=== PATIENT | male | born 1960 | race American Indian/Alaskan Native ===

== ENCOUNTER 2021-10-22 06:57 | Observation (INO) | payer OTHER ==
[2021-10-17 09:38] LABS: Hematocrit 46.8 % (35.5-45.6); Hemoglobin 14.9 gm/dl (11.8-15.2); Mean Corpuscular HGB Conc 32 % (32-34); Mean Corpuscular Volume 88 fl (84-94); Platelet Count 204 K/mm3 (140-440); Red Cell Distribution Width 14.4 % (13.2-15.2)
[2021-10-17 09:54] LABS: Alanine Aminotransferase 23 units/L (7-56); Albumin 4.1 g/dL (3.9-5); BUN/Creatinine Ratio 15; Blood Urea Nitrogen 15 mg/dL (9-20); Calcium 8.9 mg/dL (8.4-10.2); Hemolysis Index 4
[~2021-10-22 06:57] MED LIST: ACETAMINOPHEN 500 MG TAB PO SCH; GABAPENTIN 300 MG CAP PO NR; LACTATED RINGERS 1,000 ML IV SCH; MIDAZOLAM 2 MG/2 ML INJ IV NR
[2021-10-22] MEDS ORDERED: HYDROmorphone 1 MG/1 ML INJ IV PRN (08:26)
[2021-10-22] MEDS ORDERED: oxyCODONE /ACETAMINOPHEN 5-325MG TAB PO PRN (08:26)
--- NOTE | 2021-10-22 08:26 | Anesthesia Day of Surgery ---
Anesthesia Day of Surgery - Day of Surgery Patient Examined: Yes Patient H&P Reviewed: Yes Patient is NPO: Yes
--- NOTE | 2021-10-22 08:26 | Anesthesia Consultation ---
Anesthesia Consult and Med Hx Date of service: 10/22/21 - Airway Anesthetic Teeth Evaluation: Good, Dentures (upper) ROM Head & Neck: Adequate Mental/Hyoid Distance: Adequate Mallampati Class: Class III Intubation Access Assessment: Possibly Difficult - Pre-Operative Health Status ASA Pre-Surgery Classification: ASA3 Proposed Anesthetic Plan: General - Pulmonary Hx Smoking: No (quit 2yrs ago) Hx Respiratory Symptoms: No - Cardiovascular System Hx Hypertension: Yes (took amlodipine this morning) Hx Heart Attack/AMI: No Hx Percutaneous Transluminal Coronary Angioplasty (PTCA): No Hx Cardia Arrhythmia: No - Central Nervous System CVA: No - Endocrine Hx Renal Disease: No Hx Liver Disease: No Hx Insulin Dependent Diabetes: No Hx Non-Insulin Dependent Diabetes: No Hx Thyroid Disease: No - Other Systems Hx Cancer: Yes (hx prostate ca s/p prostatectomy) - Additional Comments Anesthesia Medical History Comments: No hx anesthetic complications.
[2021-10-22] MEDS ORDERED: GENTAMICIN/NS 80 MG/100 ML 100 ML IV ONE (08:42)
[2021-10-22] MEDS ORDERED: GENTAMICIN 80 MG in SODIUM CHLORIDE 0.9% 100 ML IV SCH (09:00)
[2021-10-22] MEDS ORDERED: VANCOMYCIN/NS 1 GM/250 ML 1 GM/250 ML BAG IV NR (09:00)
[2021-10-22] MEDS ORDERED: LIDOCAINE MPF (2%) 20 MG/1 ML VIAL 5 ML ONE (09:32)
[2021-10-22] MEDS ORDERED: propofoL 200 MG/20 ML VIAL IV ONE (09:32)
[2021-10-22] MEDS ORDERED: SODIUM CHLORIDE P/F VIAL 10 ML 10 ML ONE ×2 (09:36→10:13)
[2021-10-22] MEDS ORDERED: BUPIVACAINE/PF (0.5%) 5 MG/1 ML 30 ML VIAL INFILTRATI ONE ×2 (09:36→10:46)
[2021-10-22] MEDS ORDERED: GENTAMICIN 40 MG/ML VIAL 2 ML ONE (09:37)
[2021-10-22] MEDS ORDERED: SODIUM CHLORIDE 0.9% 500 ML 500 ML ONE (09:37)
[2021-10-22] MEDS ORDERED: fentaNYL 100 MCG/2 ML INJ ONE (09:37)
[2021-10-22] MEDS ORDERED: rifAMPin 600 MG VIAL ONE (09:37)
[2021-10-22] MEDS ORDERED: NEOMY 40 MG/POLYMYXIN B 200,000 UNITS/ML (GU) AMPULE IR ONE ×2 (09:37→10:48)
[2021-10-22] MEDS ORDERED: dexAMETHasone 20 MG/5 ML VIAL ONE (10:12)
[2021-10-22] MEDS ORDERED: ONDANSETRON 4 MG/2 ML INJ ONE (10:12)
[2021-10-22] MEDS ORDERED: ePHEDrine SULFATE 50 MG/1 ML INJ ONE (10:13)
[2021-10-22] MEDS ORDERED: SODIUM CHLORIDE 0.9% 500 ML IVPB IV ONE (10:47)
[2021-10-22] MEDS ORDERED: GENTAMICIN 40 MG/ML VIAL 2 ML IV ONE (10:47)
[2021-10-22] MEDS ORDERED: rifAMPin 600 MG VIAL IV ONE (10:48)
[2021-10-22] MEDS ORDERED: WATER FOR IRRIG STERILE 1,500 ML BOTTLE IR ONE (10:50)
[2021-10-22] MEDS ORDERED: SODIUM CHLORIDE 0.9% IRR 1,500 ML BOTTLE IR ONE (10:50)
[2021-10-22] MEDS ORDERED: SODIUM CHLORIDE 0.9% P/F 10 ML VIAL INFILTRATI ONE (10:50)
--- NOTE | 2021-10-22 11:57 | Short Stay Summary ---
Short Stay Documentation Date of service: 10/22/21 - History H&P: obtained from office - Allergies and Medications Current Medications: Allergies No Known Allergies Allergy (Verified 10/15/21 16:02) Home Medications Medication Instructions Recorded Confirmed Last Taken Type Multivit-Min/FA/Lycopen/Lutein 1 each PO DAILY 10/15/21 10/22/21 10/21/21 History [Centrum Silver Men Tablet] amLODIPine [Norvasc] 5 mg PO DAILY 10/15/21 10/22/21 10/22/21 05:00 History Active Medications Acetaminophen (Acetaminophen 500 Mg Tab) 1,000 mg PO PREOP STEVE Last Admin: 10/22/21 08:40 Dose: 1,000 mg Gabapentin (Gabapentin 300 Mg Cap) 300 mg PO PREOP NR Stop: 10/22/21 23:59 Last Admin: 10/22/21 08:40 Dose: 300 mg Hydromorphone HCl (Hydromorphone 1 Mg/1 Ml Inj) 0.5 mg IV Q10MIN PRN PRN Reason: Pain , Severe (7-10) Stop: 10/22/21 20:00 Lactated Ringer's (Lactated Ringers) 1,000 mls @ 100 mls/hr IV DIRECT STEVE Stop: 10/22/21 23:59 Last Admin: 10/22/21 08:30 Dose: 100 mls/hr Vancomycin HCl (Vancomycin/Ns 1 Gm/250 Ml) 1 gm in 250 mls @ 166.667 mls/hr IV PREOP NR; Protocol Stop: 10/22/21 15:00 Last Admin: 10/22/21 09:12 Dose: 166.667 mls/hr Gentamicin Sulfate 80 mg/ (Sodium Chloride) 102 mls @ 200 mls/hr IV PREOP STEVE; Protocol Stop: 10/22/21 15:00 Midazolam HCl (Midazolam 2 Mg/2 Ml Inj) 2 mg IV PREOP NR Stop: 10/22/21 23:59 Last Admin: 10/22/21 08:42 Dose: 2 mg Oxycodone/Acetaminophen (Oxycodone /Acetaminophen 5-325mg Tab) 1 tab PO ONCE PRN PRN Reason: Pain, Moderate (4-6) Stop: 10/22/21 13:00 - Brief post op/procedure progress note Date of procedure: 10/22/21 Pre-op diagnosis: ed Post-op diagnosis: other (urethral stricture) Procedure: ipp, urethral dilation (24cm coloplast) Anesthesia: SHEILA Surgeon: ANDREA SANCHEZ Estimated blood loss: 50-100ml Pathology: none Condition: stable - Hospital course Hospital course: bactrim & norco-- at home dc jernigan & wrap done - Disposition Condition at discharge: Stable Short Stay Discharge Plan Follow up with: [facility] [Primary Care Provider] - 7 Days
[2021-10-22] MEDS ORDERED: NALOXONE 0.4 MG/1 ML INJ IV PRN (12:30)
--- NOTE | 2021-10-22 13:02 | Operative Report ---
DATE OF SURGERY: 10/22/2021 PREOPERATIVE DIAGNOSIS: Erectile dysfunction. POSTOPERATIVE DIAGNOSIS: Erectile dysfunction. PROCEDURES: Urethral dilatation, insertion of inflatable penile prosthesis (Coloplast Titan 24 cm), pharmacologic injection, intracorporal injection of pharmacologic agent. SURGEON: Juan Ch MD ANESTHESIA: General. ESTIMATED BLOOD LOSS: Minimal. FLUIDS: Crystalloid. COMPLICATIONS: No complications. INDICATIONS: This 61-year-old gentleman who is a , underwent robotic prostatectomy 2018 at another facility. He presented to the office with a resistant erectile dysfunction. He has tried pills, [place] shocks vacuum erection device. We discussed options. He agreed to proceed with surgical intervention. Risks, benefits and complications were explained. DESCRIPTION OF PROCEDURE: The patient was taken to the operative suite, placed in a supine position. After adequate anesthesia, was placed in a supine position, prepped and draped in a sterile fashion. Attempts at Chang catheter was unsuccessful. Wire was placed. Urethral dilatation with the blue dilators were performed up to 20-[place]er. Clear urine could be appreciated. I was able to advance a 16-[place] tip catheter over the wire. Balloon was inflated, yandel urine returned. Next, injection of the corporal body with 60 mL of 0.5% Marcaine. No plaque or curvature could be appreciated. Metal [place] retractor was used for exposure. Transscrotal incision was made with the Bovie. Sharp dissection was taken down to the corporal bodies. 2-0 Vicryl stay sutures were placed. Corporotomy was made bilaterally. Gentle dissection of the corporal body was performed with a measuring tool. Measurements revealed a total of 24 cm both corporal bodies. Therefore, a 24 cm Coloplast Titan device was used. The reservoir was prepped, placed in the retropubic space via the right external ring. It was inflated with 120 mL without difficulty. The cylinders were prepped, placed in the corporal bodies with the aid of a David needle. Corporotomies were closed with 2-0 Vicryl in a running fashion. The pump was separate, it was placed in the dependent portion of the scrotum. The pump and cylinders were connected with the quick click connection system and then the pump and the reservoir was connected with the quick click connecting system. Internal fluid was then used in insufflation revealed an adequate erection. Copious irrigation was performed, adequate hemostasis was achieved. A 2-0 Vicryl was used in a pursestring fashion to secure the pump in a dependent portion of the scrotum. A running stitch was used to close the dartos layer. The skin was then closed with a 3-0 Vicryl in interrupted fashion and a transverse fashion. A 70% erection was left with the pump. Collodion and Xeroform gauze was placed followed by a Alka as a mummy wrap. Chang was taped to the abdomen. The patient tolerated the procedure well and was extubated and taken to recovery room in stable condition. He will be observed overnight. TID: [id number] RECEIPT: [id number] SAVAGE/ADE/JOSHUA
--- NOTE | 2021-10-22 13:13 | Consultation ---
History of Present Illness - Reason for Consult Consult date: 10/22/21 Medical Management Requesting physician: ANDREA CH - History of Present Illness 61 YO Male with HTN, CaP admitted for surgical intervention. Consult placed by Dr. Ch for medical management. Patient seen and evaluated upon arrival to his room. Patient resting comfortably. Patient denies fever, chills, chest pain, palpitation, productive cough, skin rash, recent contact, known exposure to COVID-19. No reported nursing events. Past History Past Medical History: cancer, hypertension Past Surgical History: Other (Prostatectomy) Social history: Family history: hypertension Medications and Allergies Allergies Allergy/AdvReac Type Severity Reaction Status Date / Time No Known Allergies Allergy Verified 10/15/21 16:02 Home Medications Medication Instructions Recorded Confirmed Last Taken Type Multivit-Min/FA/Lycopen/Lutein 1 each PO DAILY 10/15/21 10/22/21 10/21/21 H istory [Centrum Silver Men Tablet] amLODIPine [Norvasc] 5 mg PO DAILY 10/15/21 10/22/21 10/22/21 05:00 History Active Meds: Active Medications Acetaminophen (Acetaminophen 325 Mg Tab) 650 mg PO Q4H PRN PRN Reason: Pain MILD(1-3)/Fever >100.5/KIRK Hydrocodone Bitart/Acetaminophen (Hydrocodone/Acetaminophen 5-325 Mg Tab) 2 each PO Q6H PRN PRN Reason: Pain, Moderate (4-6) Amlodipine Besylate (Amlodipine 5 Mg Tab) 5 mg PO DAILY STEVE Gabapentin (Gabapentin 300 Mg Cap) 300 mg PO PREOP NR Stop: 10/22/21 23:59 Last Admin: 10/22/21 08:40 Dose: 300 mg Hydromorphone HCl (Hydromorphone 1 Mg/1 Ml Inj) 0.5 mg IV Q10MIN PRN PRN Reason: Pain , Severe (7-10) Stop: 10/22/21 20:00 Last Admin: 10/22/21 12:32 Dose: 0.5 mg Vancomycin HCl (Vancomycin/Ns 1 Gm/250 Ml) 1 gm in 250 mls @ 166.667 mls/hr IV PREOP NR; Protocol Stop: 10/22/21 15:00 Last Admin: 10/22/21 09:12 Dose: 166.667 mls/hr Gentamicin Sulfate 80 mg/ (Sodium Chloride) 102 mls @ 200 mls/hr IV PREOP STEVE; Protocol Stop: 10/22/21 15:00 Sodium Chloride (Nacl 0.45% 1000 Ml) 1,000 mls @ 125 mls/hr IV DIRECT STEVE Cefazolin Sodium (Ancef/Ns 1 Gm/50 Ml) 1 gm in 50 mls @ 100 mls/hr IV Q8H STEVE; Protocol Stop: 10/22/21 22:29 Midazolam HCl (Midazolam 2 Mg/2 Ml Inj) 2 mg IV PREOP NR Stop: 10/22/21 23:59 Last Admin: 10/22/21 08:42 Dose: 2 mg Morphine Sulfate (Morphine 4 Mg/1 Ml Inj) 4 mg IV Q4H PRN PRN Reason: Pain , Severe (7-10) Naloxone HCl (Naloxone 0.4 Mg/1 Ml Inj) 0.1 mg IV Q2MIN PRN PRN Reason: Res Rate </= 8 or 02 SAT < 92% Ondansetron HCl (Ondansetron 4 Mg/2 Ml Inj) 4 mg IV Q8H PRN PRN Reason: N/V unrelieved by [facility] Review of Systems Constitutional: no weight loss, no weight gain, no fever, no chills Ears, nose, mouth and throat: no ear pain, no tinnitis, no decreased hearing, no sinus pressure Cardiovascular: no chest pain, no rapid/irregular heart beat, no syncope, no lightheadedness Respiratory: no cough, no excessive sputum, no hemoptysis, no shortness of breath Gastrointestinal: no nausea, no vomiting, no diarrhea, no constipation, no hematemesis, no coffee ground emesis Genitourinary Male: no hematuria, no flank pain, no discharge, no urinary frequency, no nocturia, no incontinence Rectal: no pain, no incontinence, no bleeding Musculoskeletal: no neck stiffness, no neck pain, no shooting leg pain Integumentary: no rash, no redness, no sores Neurological: no head injury, no transient paralysis, no parathesias, no tingling, no seizures Psychiatric: no anxiety, no memory loss, no sleep disturbances, no hypersomnia, no change in libido, no disorientation Endocrine: no cold intolerance, no heat intolerance, no excessive thirst, no excessive sweating Hematologic/Lymphatic: no easy bruising, no easy bleeding, no lymphedema Allergic/Immunologic: no urticaria, no persistent infections Exam - Constitutional Vitals: Temp Pulse Resp BP Pulse Ox 96.9 F L 64 16 142/86 98 10/22/21 11:54 10/22/21 12:40 10/22/21 12:40 10/22/21 12:40 10/22/21 12:40 General appearance: Present: no acute distress, well-nourished - EENT Eyes: Present: PERRL ENT: hearing intact, clear oral mucosa - Neck Neck: Present: supple, normal ROM - Respiratory Respiratory effort: normal Respiratory: bilateral: CTA - Cardiovascular Heart Sounds: Present: S1 & S2. Absent: rub, click - Extremities Extremities: pulses symmetrical, No edema Peripheral Pulses: within normal limits - Abdominal General gastrointestinal: Present: soft, non-tender, non-distended, normal bowel sounds Male genitourinary: Present: normal - Integumentary Integumentary: Present: clear, warm, dry - Musculoskeletal Musculoskeletal: gait normal, strength equal bilaterally - Psychiatric Psychiatric: appropriate mood/affect, intact judgment & insight - Neurologic Neurologic: CNII-XII intact, moves all extremities Results - Labs CBC & Chem 7: 10/17/21 09:30 10/17/21 09:30 Assessment and Plan - Patient Problems (1) HTN (hypertension) Current Visit: Yes Status: Acute Qualifiers: Hypertension type: primary hypertension Qualified Code(s): I10 - Essential (primary) hypertension Plan to address problem: Monitor blood pressure every shift, continue medical management. (2) Prostate cancer Current Visit: Yes Status: Acute Plan to address problem: Patient is status postsurgical intervention. Supportive care. Further care and evaluation as per urology team.
[2021-10-22] MEDS ORDERED: ACETAMINOPHEN 325 MG TAB PO PRN (14:00)
[2021-10-22] MEDS: MORPHINE 4 MG/1 ML INJ IV PRN ×2 (14:24→21:24)
--- NOTE | 2021-10-22 15:03 | Post Anesthesia Evaluation ---
- Post Anesthesia Evaluation Patient Participated: Yes Airway Patent: Yes Stable Respiratory Function: Yes Nausea/Vomiting: No Temp > 96.8F: Yes Pain Manageable: Yes Adequeate Hydration: Yes Anesthesia Complications: No
[2021-10-22] MEDS: ceFAZolin/NS 1 GM/50 ML 1 GM/50 ML BAG IV SCH ×2 (15:21→22:50)
[2021-10-22] MEDS ORDERED: ONDANSETRON 4 MG/2 ML INJ IV PRN (16:00)
[2021-10-22] MEDS: HYDROcodone/ACETAMINOPHEN 5-325 MG TAB PO PRN (18:31)
[2021-10-22] MEDS: SODIUM CHLORIDE 0.45% 1000 ML 1,000 ML IV SCH (21:23)
[2021-10-23] MEDS: HYDROcodone/ACETAMINOPHEN 5-325 MG TAB PO PRN ×2 (02:46→12:15)
[2021-10-23] MEDS: MORPHINE 4 MG/1 ML INJ IV PRN ×2 (05:24→08:31)
[2021-10-23] MEDS: SODIUM CHLORIDE 0.45% 1000 ML 1,000 ML IV SCH (05:25)
[2021-10-23 07:40] VITALS: BP 133/76
[2021-10-23] MEDS ORDERED: amLODIPine 5 MG TAB PO SCH (10:00)
== END 2021-10-23 12:11 | disposition home or self-care (01) ==
LOC: OR 06:57 → 3A 11:57
PROVIDERS: ADMIT Urology; ATTEND Urology
DX: N52.01 Erectile dysfunction due to arterial insufficiency (principal); Z20.822 Contact with and (suspected) exposure to COVID-19; N35.919 Unspecified urethral stricture, male, unspecified site; I10 Essential (primary) hypertension; Z85.46 Personal history of malignant neoplasm of prostate; Z79.899 Other long term (current) drug therapy; Z98.890 Other specified postprocedural states
CPT/HCPCS: 36415; 54405; 80053; 85027; 96365; 96366; 96375; 96376; C1726; C1769; C1813; G0378; J0690; J1100; J1170; J1580; J2250; J2270; J2405; J2704; J3010; J3370; J3490; J7030; J7040; J7120; U0003